=== PATIENT | female | born 1980 | race American Indian/Alaskan Native ===

== ENCOUNTER 2019-02-05 21:38 | Emergency (ER) | payer BC ==
[2019-02-05] MEDS ORDERED: MORPHINE 4 MG/1 ML INJ IV ONE (22:02)
[2019-02-05] MEDS ORDERED: SODIUM CHLORIDE 0.9% 1000 ML 1,000 ML IV ONE (22:02)
[2019-02-05] MEDS ORDERED: ONDANSETRON 4 MG/2 ML INJ IV ONE (22:02)
[2019-02-05] MEDS ORDERED: MORPHINE 4 MG/1 ML INJ ONE (22:05)
[2019-02-05] MEDS ORDERED: SODIUM CHLORIDE 0.9% 1000 ML 1,000 ML ONE (22:06)
[2019-02-05] MEDS ORDERED: ONDANSETRON 4 MG/2 ML INJ ONE (22:06)
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
[2019-02-05] MEDS ORDERED: diphenhydrAMINE 50 MG/ML VIAL ONE (22:13)
[2019-02-05] MEDS ORDERED: diphenhydrAMINE 50 MG/ML VIAL IV ONE (22:18)
[2019-02-05] MEDS ORDERED: methylPREDNISolone Sod Succinate 125 MG/2 ML INJ IV ONE (22:25)
[2019-02-05] MEDS ORDERED: methylPREDNISolone Sod Succinate 125 MG/2 ML INJ ONE (22:29)
[2019-02-05 23:02] LABS: BUN/Creatinine Ratio 16; Blood Urea Nitrogen 14 mg/dL (7-17); Calcium 8.9 mg/dL (8.4-10.2); Hemolysis Index 25
[2019-02-05 23:04] LABS: Alanine Aminotransferase 12 units/L (7-56); Albumin 4.3 g/dL (3.9-5)
[2019-02-05 23:13] LABS: Bilirubin,Direct < 0.2 mg/dL (0-0.2)
[2019-02-05 23:21] LABS: Hematocrit 36.6 % (30.3-42.9); Hemoglobin 11.7 gm/dl (10.1-14.3); Mean Corpuscular HGB Conc 32 % (30-34); Mean Corpuscular Volume 82 fl (79-97); Red Blood Count 4.46 M/mm3 (3.65-5.03); Red Cell Distribution Width 14.6 % (13.2-15.2)
[2019-02-05 23:22] LABS: Platelet Count 97 K/mm3 (140-440)
--- NOTE | 2019-02-06 00:47 | Cat Scan Report ---
CT abdomen pelvis w con INDICATION: Left-sided abdominal pain and mid lower abdominal pain for one and half weeks with nausea. TECHNIQUE: All CT scans at this location are performed using the following dose modulation technique: Automated exposure control. Helical slices were obtained through the abdomen and pelvis. 100 cc of Omnipaque 30 0 is administered. COMPARISON: None available. FINDINGS: Abdomen: There is minimal alveolar atelectasis. The liver, spleen, pancreas, adrenal glands, and kidn eys are unremarkable. There is no obstruction, inflammation, or free air. There is a large amount of stool in the right colon and proximal transverse colon raising possibility of constipation. No adenopathy is seen. The aorta is normal in diameter. Pelvis: There is a 6 cm enhancing mass in the right adnexa there is fluid in the endometrial canal li gabriela related to phase of patient's menstrual cycle. No adenopathy is seen. The appendix is unremarkab le. On review of bone windows no acute osseous abnormalities are seen. IMPRESSION: 1. There is a 6 cm enhancing mass in the right adnexa. This appears to arise from the uterus and I hidalgo spect this represents an exophytic fibroid arising from the uterus. The possibility that this could r epresent an ovarian mass or neoplasm is included in the differential diagnosis but is felt to be less likely. There is a moderate to large amount stool in the right and proximal transverse colon raising the poss ibility of constipation. There is no obstruction, inflammation, or free air. Signer Name: Zachary Blackman MD Signed: 02/06/2019 12:42 AM Workstation Name: [id number]
[2019-02-06] MEDS ORDERED: fentaNYL 100 MCG/2 ML INJ IV ONE (01:35)
[2019-02-06 02:00] LABS: Bacteria,Urine 1+ /HPF (Negative); Bilirubin,Urine NEG (Negative); Blood,Urine SM (Negative); Color,Urine Yellow (Yellow); Mucus,Urine FEW /HPF; Protein,Urine <15 mg/dL mg/dL (Negative); Urobilinogen,Urine < 2.0 mg/dL (<2.0)
[2019-02-06 02:04] LABS: WBC,Urine > 182.0 /HPF (0.0-6.0)
--- NOTE | 2019-02-06 02:34 | Ultrasound Report ---
Pelvic ultrasound complete INDICATION: Pelvic mass on CT performed 02/05/2019 COMPARISON: CT scan dated 02/05/2019 Findings: The uterus measures 10.2 cm in length. Endometrial stripe measures 5 mm. Uterus is anteverted. The right ovary measures 4.1 cm and the left ovary measures 2.3 cm. There is a 2 cm cyst in the right ovary. In the right adnexa adjacent to the right aspect of the uterus there is a 5.3 x 4.4 x 5.9 cm solid ma ss. This is the structure seen on CT. Ultrasound examination this appears to be separate from the jena bipin. On CT there appears to be a connection with the uterus. There is a small amount of free fluid in the pelvis. IMPRESSION: There is a solid mass lesion in the right pelvis adjacent to the uterus this appears to be separate f rom the ovary. Differential diagnosis includes neoplastic etiologies. This may represent a pedunculat ed exophytic fibroid arising from the uterus. Signer Name: Zachary Blackman MD Signed: 02/06/2019 2:29 AM Workstation Name: [id number]
[2019-02-06 04:01] VITALS: BP 130/79
== END 2019-02-06 03:59 | disposition home or self-care (01) ==
LOC: ED 21:38
DX: N39.0 Urinary tract infection, site not specified (principal); J45.909 Unspecified asthma, uncomplicated; G47.30 Sleep apnea, unspecified; Z87.442 Personal history of urinary calculi; Z88.0 Allergy status to penicillin; Z88.8 Allergy status to other drugs, medicaments and biological substances; Z88.6 Allergy status to analgesic agent
CPT/HCPCS: 36415; 74177; 76856; 80048; 80076; 81001; 83690; 84703; 85025; 96361; 96365; 96375; 99285; J1200; J1956; J2270; J2405; J2930; J3010; J7030; Q9967

== ENCOUNTER 2019-04-12 05:50 | Inpatient (IN) | payer BC ==
--- NOTE | 2019-04-10 11:20 | Anesthesia Consultation ---
Anesthesia Consult and Med Hx Date of service: 04/12/19 - Airway Anesthetic Teeth Evaluation: Good ROM Head & Neck: Adequate Mental/Hyoid Distance: Adequate Mallampati Class: Class I Intubation Access Assessment: Good - Pre-Operative Health Status ASA Pre-Surgery Classification: ASA2 Proposed Anesthetic Plan: General Nerve Block: TAP - Pulmonary Hx Asthma: Yes Hx Sleep Apnea: Yes - Cardiovascular System Hx Heart Murmur: Yes (+Cardiac Clearance: ECHO [id number]) - Central Nervous System Hx Seizures: Yes (Had "convulsions" as allergic reaction to meds) Hx Psychiatric Problems: No - Hematic Hx Anemia: Yes - Other Systems Hx Cancer: No
[2019-04-10 11:28] LABS: Basophils % (Auto) 1.2 % (0.0-1.8); Eosinophils # (Auto) 0.1 K/mm3 (0.0-0.4); Eosinophils % (Auto) 2.9 % (0.0-4.3); Hematocrit 35.6 % (30.3-42.9); Hemoglobin 11.5 gm/dl (10.1-14.3); Lymphocytes % (Auto) 37.1 % (13.4-35.0); Mean Corpuscular HGB Conc 32 % (30-34); Mean Corpuscular Volume 82 fl (79-97); Monocytes # (Auto) 0.2 K/mm3 (0.0-0.8); Monocytes % (Auto) 6.5 % (0.0-7.3); Platelet Count 270 K/mm3 (140-440); Red Blood Count 4.35 M/mm3 (3.65-5.03); Red Cell Distribution Width 15.9 % (13.2-15.2)
--- NOTE | 2019-04-11 14:29 | History and Physical Report ---
History of Present Illness Date of examination: 04/11/19 Chief complaint: Pelvic pain, menometrorrhagia, pelvic mass History of present illness: New pt presents for a PLEATER HAND f/u s/p ER visit at [facility]. Pt reports she went to the ER on 02/05/19 d/t lower ABD pain and N/V. States she was told she had a UTI and had an ABD CT scan U/S done d/t hx of kidney stones. Pt was informed of mass on uterus and recommended to f/u with PLEATER HAND. Has hx of left ovarian cyst that was removed in 2003 per pt and was told returned after her last delivery via C/S in 2008; but unsure of which ovary. New cyst caused intermittent ABD pain, heavy menstrual bleeding that lasts 14 days at a time. Pt has been f/u with serial U/S q 6 months to monitor cyst, but her PLEATER HAND practice recently closed in [place]. Pt reports hx of abnormal paps between age [age] and had a colposcopy in 2003. Last pap 07/2018 and reports normal. Has been desiring to have a hysterectomy. Past History : 4 Term Births: 3 Premature Births: 0 Living Children: 3 Para: 3 Mult. Births: 0 Prev : 1 Prev. attempt? 0 # 1 Comments: D&C at 8yrs old # 2 Delivery date: 1999 Delivery type: # 3 Delivery type: # 4 Delivery date: 2008 Delivery type: PLEATER HAND History Uterine Surgery (not C/S): negative Operations: Umbilical hernia repair as an x1 D&C: Cryoablation of cervix - 2003 Ovarian cystectomy 2004 Tubal Ligation Hospitalizations: negative Anesthesia Complications: negative Abnormal PAP: positive Uterine Anomaly: negative YARITZA Exposure: negative Infertility: negative Infection History HIV Risk Eval: no Hep B Immunized: yes TB exposure: no Personal hx. of genital herpes: no Rash/viral illness since LMP: no Hx of STD: chlamydia Active Medications (reviewed today): ALBUTEROL SULFATE (2.5 MG/3ML) 0.083% INHALATION NEBULIZATION SOLUTION (ALBUTEROL SULFATE) IBUPROFEN 800 MG ORAL TABLET (IBUPROFEN) 1 tsb po q 8hr prn pain Current Allergies (reviewed today): HALDOL (Critical) PCN (Critical) MORPHINE (Moderate) Past Medical History: Reviewed history from 03/04/2019 and no changes required: Kidney Stones Sleep apnea - uses CPAP at home Asthma MVP Past Surgical History: Reviewed history from 02/26/2019 and no changes required: Umbilical hernia repair as an infant x1 D&C: Cryoablation of cervix - 2004 Ovarian cystectomy Tubal Ligation Family History Summary: Other family member - Has No Family History of Uterine Cancer - Entered On: 04/11/2019 Other family member - Has No Family History of Spontaneous DVT-PE - Entered On: 04/11/2019 Other family member - Has No Family History of Small Bowel Cancer - Entered On: 04/11/2019 Other family member - Has No Family History of Pancreatic Cancer - Entered On: 04/11/2019 Other family member - Has No Family History of Ovarvian Cancer - Entered On: 04/11/2019 Other family member - Has No Family History of Kidney/Urinary Tract Cancer - Entered On: 04/11/2019 Other family member - Has No Family History of Colon Cancer - Entered On: 04/11/2019 Other family member - Has No Family History of Brain Cancer - Entered On: 04/11/2019 Other family member - Has No Family History of Biliary Tract Cancer - Entered On: 04/11/2019 Cousin (male) - Has Family History of Stomach Cancer - son of the aunt who had lung cancer - Entered On: 04/11/2019 PGM - Has Family History of Lung Cancer - Entered On: 04/11/2019 Aunt - Has Family History of Lung Cancer - paternal, aslo throat - Entered On: 04/11/2019 Aunt - Has Family History Breast Cancer - paternal - Entered On: 04/11/2019 Social History: Reviewed history from 02/07/2019 and no changes required: Patient is single Smoking History: Patient has never smoked. Risk Factors: Smoked Tobacco Use: Never smoker Smokeless Tobacco Use: Never Passive smoke exposure: no Drug use: no HIV high-risk behavior: no Alcohol use: no Exercise: no Seatbelt use: 100 % PAP Smear History: Date of Last PAP Smear: 07/20/2018 Previous Tobacco Use: Signed On 03/04/2019 Smoked Tobacco Use: Never smoker Smokeless Tobacco Use: Never Passive smoke exposure: no Drug use: no HIV high-risk behavior: no Caffeine use: 0 drinks per day Previous Alcohol Use: Signed On 03/04/2019 Alcohol use: no Exercise: no Seatbelt use: 100 % PAP Smear History: Date of Last PAP Smear: 07/20/2018 Physical Exam Appearance: well developed, well nourished, no acute distress Other Exams Lungs: no rales, rhonchi, or wheezes Heart: S1, S2, no murmur, rub, or gallop Genitourinary Exam Uterus: deferred for EUA Impression & Recommendations: Problem # 1: Menorrhagia/Menometrorrhagia (ICD-626.2) (RZH47-M30.0) Diagnosis explained to patient . Discussed with patient various medical, surgical and radiological therapies common for treatment including, but not limited to, myomectomy, hysterectomy and uterine artery embolization. Discussed risks and benefits of laparotomy, laparoscopy, vaginal and robotic assisted approaches for hysterectomies. Patient desires definitive treatment in the form of robot assisted laparoscopic total hysterectomy. The risks and alternatives for this surgery were reviewed with the patient. She was informed of the risks of the surgery including, but not limited to, pain, infection, bleeding possibly heavy enough to require a blood transfusion with associated ri sks of infections (hepatitis and HIV) and transfusion reactions, possible damage to bowel, bladder or ureter(s). Patient understands that this surgery will make her sterile. Indications to abort a robotic/laparoscopic procedure and perform an open procedure were explained. Patient understands if her ovaries are removed she will become menopausal. She desires ovarian conservation. She was informed she may require surgery later to have her ovaries removed for a benign or mailgnant condition. Patient advised the small risks of spreading of malignancy if morcellation is required during the surgery patient understands and approves performing if necessary. Questions answered. Consent reviewed and signed The patient was instructed/informed the following: The normal length of hospital stay for this procedure. Nothing to eat or drink after midnight the evening prior to surgery. Clear liquids the day before surgery. Pre-op instruction sheets given. Wound care instructions given. Problem # 2: Pelvic mass (ICD-789.30) (WIJ76-C20.00) She was informed her ovary may require removal if this mass involves the ovary. Problem # 3: Left lower quadrant pain (EGY36-M28.32) It was extensively explained to her that her pain may persist, recur or change in nature due to the difficulty with diagnosis of chronic pelvic pain or development of adhesions. She declined other treatment options at this time. Questions were encouraged and answered. Medications and Allergies Allergies Allergy/AdvReac Type Severity Reaction Status Date / Time haloperidol [From Haldol] Allergy Seizure Verified 04/01/19 17:01 morphine Allergy Seizure Verified 04/01/19 17:01 Penicillins Allergy Unknown Verified 02/05/19 22:02 Home Medications Medication Instructions Recorded Confirmed Last Taken Type Iron [Iron 18 MG TAB] 18 mg PO QDAY 04/01/19 04/01/19 Unknown History Exam Vital Signs Temp Pulse Resp BP Pulse Ox 96.7 F L 73 18 103/50 100 04/10/19 10:43 04/10/19 10:43 04/10/19 10:43 04/10/19 10:43 04/10/19 10:43 Results - Labs 04/10/19 10:59 Assessment and Plan - Patient Problems (1) Menometrorrhagia Status: Chronic (2) Pelvic pain Status: Chronic (3) Pelvic mass in female Status: Acute (4) Neutropenia Status: Acute
[~2019-04-12 05:50] MED LIST: GENTAMICIN 0 MG in SODIUM CHLORIDE 0.9% 100 ML IV ONE; GENTAMICIN/NS 100 MG/100 ML 100 MG/100 ML BAG IV SCH; ceFAZolin/Water 2 GM/20 ML 2 GM/20 ML SYRINGE IV NR
[2019-04-12] MEDS ORDERED: MIDAZOLAM 2 MG/2 ML INJ ONE (07:16)
[2019-04-12] MEDS ORDERED: ACETAMINOPHEN 325 MG TAB ONE (07:16)
[2019-04-12] MEDS ORDERED: GABAPENTIN 300 MG CAP ONE (07:17)
[2019-04-12] MEDS ORDERED: LACTATED RINGERS 1,000 ML ONE (07:17)
[2019-04-12] MEDS ORDERED: CELECOXIB 200 MG CAP ONE (07:17)
[2019-04-12] MEDS ORDERED: fentaNYL 100 MCG/2 ML INJ ONE (07:18)
[2019-04-12] MEDS ORDERED: LIDOCAINE (1%) 10 MG/1 ML VIAL 20 ML MDV ONE (07:19)
[2019-04-12] MEDS ORDERED: BUPIVACAINE-EPINEPHRINE/PF 0.5%-1:200,000 (30 ML) VIAL INFILTRATI ONE (07:19)
[2019-04-12] MEDS ORDERED: ACETAMINOPHEN 325 MG TAB PO NR (07:20)
[2019-04-12] MEDS ORDERED: LACTATED RINGERS 1,000 ML IV SCH ×2 (07:20→11:00)
[2019-04-12] MEDS ORDERED: MIDAZOLAM 2 MG/2 ML INJ IV NR (07:20)
[2019-04-12] MEDS ORDERED: fentaNYL 100 MCG/2 ML INJ IV NR (07:20)
[2019-04-12] MEDS ORDERED: GABAPENTIN 300 MG CAP PO NR (07:20)
--- NOTE | 2019-04-12 07:21 | Anesthesia Day of Surgery ---
Anesthesia Day of Surgery - Day of Surgery Patient Examined: Yes Patient H&P Reviewed: Yes Patient is NPO: Yes
[2019-04-12] MEDS ORDERED: NEOMY 40 MG/POLYMYXIN B 200,000 UNITS/ML (GU) AMPULE IR ONE ×2 (07:26→08:50)
[2019-04-12] MEDS ORDERED: LIDOCAINE MPF (2%) 20 MG/1 ML VIAL 5 ML ONE (07:33)
[2019-04-12] MEDS ORDERED: ONDANSETRON 4 MG/2 ML INJ ONE ×2 (07:33→07:43)
[2019-04-12] MEDS ORDERED: PROPOFOL 200 MG/20 ML VIAL IV ONE (07:33)
[2019-04-12] MEDS ORDERED: GLYCOPYRROLATE 0.4 MG/2 ML INJ ONE (07:33)
[2019-04-12] MEDS ORDERED: fentaNYL 250 MCG/5 ML INJ ONE (07:33)
[2019-04-12] MEDS ORDERED: ROCURONIUM 50 MG/5 ML INJ IV ONE (07:33)
[2019-04-12] MEDS ORDERED: PHENYLEPHRINE/NS 1,000 MCG/10 ML SYRINGE (OR USE) IV ONE (07:33)
[2019-04-12] MEDS ORDERED: NEOSTIGMINE 10MG/10 ML INJ MDV ONE (07:33)
[2019-04-12] MEDS ORDERED: dexAMETHasone 20 MG/5 ML VIAL ONE (07:33)
[2019-04-12] MEDS ORDERED: ONDANSETRON 4 MG/2 ML INJ IV NR (07:42)
[2019-04-12] MEDS ORDERED: diphenhydrAMINE 50 MG/ML VIAL IV NR (07:46)
[2019-04-12] MEDS ORDERED: diphenhydrAMINE 50 MG/ML VIAL ONE (07:47)
--- NOTE | 2019-04-12 08:06 | Event Note ---
Date: 04/12/19 s/w patient's mother and aunts. No questions voiced
[2019-04-12] MEDS ORDERED: CALCIUM CHLORIDE 1,000 MG/10 ML SYRINGE IV ONE (08:12)
[2019-04-12] MEDS ORDERED: THROMBIN (RECOMBINANT) 5,000 UNIT VIAL TP ONE (08:12)
[2019-04-12] MEDS ORDERED: SODIUM CHLORIDE 0.9% IRRIG SOLN 2000 ML IR ONE (08:51)
--- NOTE | 2019-04-12 10:57 | Post Operative Note ---
Pre-op diagnosis: menorrhagia, pelvic mass Post-op diagnosis: same (fibroids) Procedure: RALTH with (B) salpingectomy Anesthesia: RISHI Surgeon: KAVITA ERWIN Estimated blood loss: minimal Specimen disposition: to lab Condition: stable Disposition: PACU
--- NOTE | 2019-04-12 11:40 | Operative Report ---
Operative Report Operative Report: Date: 04/12/2019 Preoperative diagnosis: 1. Menorrhagia 2. Uterine fibroids 3. Body mass index of 25 kg/m 4. Pelvic mass Postoperative diagnosis: 1. Menorrhagia 2. Uterine fibroids 3. Body mass index of 25 kg/m 4. Pelvic adhesions Procedure: 1. Robotic-assisted laparoscopic total hysterectomy with bilateral salpingectomy 2. Lysis of pelvic adhesions Surgeon: Nora Matta MD Manager Marketing Communication: Shanthi Gaffney Anesthesiologist: Dr. Lynn Anesthesia: General endotracheal anesthesia EBL: Approximately 50 mL Findings: Uterus was sounded to 10 cm. Grossly normal tubes and ovaries. Procedure: Patient was taken to the OR and placed in the supine position. General anesthesia was induced and an oral gastric tube was placed. Her neck and head were placed on foam support. Foam eye protection with goggles were secured in place. Then foam face protection was placed and secured. Foam shoulder pads were then positioned on her shoulders for Trendelenburg positioning. She was then placed in dorsolithotomy position. Exam under anesthesia unremarkable, however difficult to palpate due to body mass index. The abdomen and vagina were then prepped and draped in the usual sterile fashion. Timeout was performed. A Rodriguez catheter was inserted into the bladder with drainage of clear yellow urine. The operative speculum was introduced into the vagina and the anterior lip of the cervix was grasped with single-toothed tenaculum. The uterus was sounded to 8 cm. The cervix was progressively dilated to allow the medium V care uterine manipulator. The bulb of the manipulator was inflated and the speculum and tenaculum were removed. The cup of the manipulator was placed around the cervix and the blue occluder of the manipulator was properly positioned in the vagina. A laparotomy sponge that was saturated with a solution of polymyxin and saline was placed in the vagina to ensure pneumoperitoneum. Sterile gloves were placed and attention was turned to the abdomen. A 10 mm midline vertical supraumbilical incision was made approximately 10 cm superior to the elevated fundus of the uterus. A 12 mm trocar with the laparoscope and camera attached was introduced through this incision under direct visualization. The abdomen was insufflated. No obvious bowel, bladder, ureteral, or major vascular injury was noted. The patient was then placed in steep Trendelenburg position and the following trochars were placed under direct visualization: 8 mm robotic trochars were placed through incisions made in the bilateral midclavicular lower abdominal region approximately 10 cm lateral to the midline incision, and a 5 mm trocar was placed through an incision made in the right lower lateral pelvis. The 10 mm laparoscope was then replaced by a 5 mm laparoscope that was placed through the 5 millimeter lateral trocar. The 12 mm trocar was then removed and the Dennis Acosta fascial closure device was placed through the incision and a 0 Vicryl was placed through the fascia. Once the suture was secured the 12 mm trocar was reintroduced. Once the trochars were in the appropriate positions, the da Paulo robot system was engaged. The EndoShears and bipolar device was placed through the 8 mm trochars and positioned then attention was turned to the console. The uterus was elevated and bilateral salpingectomy was performed. Each tube was removed through the 5 mm trocar and sent to pathology in separate containers. Then the utero-ovarian ligaments were clamped. cauterized and incised bilaterally using 30 W of energy. Then the round ligaments were clamped, cauterized and incised bilaterally. The mass in the right adnexa noted on imaging was visualized to be actually in the lateral right lower uterine segment. The anterior leaf of the broad ligament was elevated and with careful blunt and sharp dissection the bladder flap was created and dissected away from the lower uterine segment and cervix. The posterior leaf of the broad ligament was dissected away from the uterine vessels. An incision was made over the anterior serosa of the fibroid. The decision was made to remove the fibroid in order to restore anatomy. With careful blunt and sharp dissection the fibroid was removed. The cup of the uterine manipulator was palpated both anteriorly and posteriorly. The bladder was further dissected away from the lower uterine segment. The uterine vessels were then clamped and cauterized bilaterally. Blanching of the uterus was then noted. Attention was again turned to the anterior lower uterine segment and the bladder was confirmed to be away from the operative field. Then attention was turned again to the posterior where the cup of the manipulator was palpated and a colpotomy was performed down to the cup. The incision was extended in the lateral position to the uterine vessels that were again clamped and cauterized and incised. Continuing along the cup of the manipulator in a circumferential manner the colpotomy was completed. The uterus and cervix were then removed through the vaginal incision. The fibroid was also removed through the vagina. The pelvis was irrigated with warm normal saline. A moist laparotomy sponge was placed in the vagina to maintain pneumoperitoneum. The vagina cuff was reapproximated using V LOC 180 suture. Then a J stitch was performed to secure the suture. Again the pelvis was copiously irrigated with polymixin in warm normal saline. The laparotomy sponge was removed from the vagina. No obvious evidence of bowel, bladder, ureteral, or major vascular injury was noted. Once hemostasis was noted, platelet rich plasma was applied to the operative field to ensure hemostasis. Then lately poor plasma was applied to the operative field to decrease formation of adhesions. Again hemostasis was noted. Then the instruments were removed, the robot was disengaged. The 12 mm trocar was removed and the fascia was ligated with the 0 Vicryl suture that was placed at the beginning of the procedure. The patient was taken out of Trendelenburg position, the abdomen was desufflated, the remaining trochars were removed. Incisions were reapproximated using 4-0 Monocryl in a subcuticular manner. . Surgiseal was placed over the other incisions. The vagina was then inspected, the cuff was palpated to be intact and no bleeding was noted and clear yellow urine was draining into the Rodriguez bag from the bladder at the end of the procedure. Counts were correct 3.Patient was taken to recovery room in stable condition.
[2019-04-12] MEDS ORDERED: ACETAMINOPHEN 325 MG TAB PO PRN (12:00)
[2019-04-12] MEDS ORDERED: ALBUTEROL 2.5 MG/3 ML NEBU IH ONE ×2 (12:03→14:31)
[2019-04-12] MEDS ORDERED: DEXMEDETOMIDINE 200 MCG/2 ML VIAL IV ONE (12:14)
[2019-04-12] MEDS ORDERED: SODIUM CHLORIDE 0.9% 250ML 250 ML ONE (12:15)
[2019-04-12] MEDS ORDERED: SODIUM CHLORIDE 0.9% 0 ML ONE (12:17)
[2019-04-12] MEDS: MIDAZOLAM 2 MG/2 ML INJ IV PRN ×2 (12:18→13:10)
[2019-04-12] MEDS ORDERED: METOCLOPRAMIDE 10 MG TAB PO PRN (12:30)
[2019-04-12] MEDS ORDERED: ONDANSETRON 4 MG ODT TAB PO PRN (12:30)
[2019-04-12] MEDS ORDERED: METOCLOPRAMIDE 10 MG/2 ML INJ IV PRN (12:30)
[2019-04-12] MEDS: oxyCODONE /ACETAMINOPHEN 5-325MG TAB PO PRN (14:59)
[2019-04-12] MEDS ORDERED: IPRATROPIUM/ALBUTEROL SULFATE 3 ML AMPUL.NEB IH PRN (16:23)
[2019-04-12] MEDS ORDERED: ALBUTEROL 2.5 MG/3 ML NEBU IH PRN (16:23)
--- NOTE | 2019-04-12 16:48 | Post Anesthesia Evaluation ---
- Post Anesthesia Evaluation Patient Participated: Yes Airway Patent: Yes Stable Respiratory Function: Yes Nausea/Vomiting: No Temp > 96.8F: Yes Pain Manageable: Yes Adequeate Hydration: Yes Anesthesia Complications: No Block Receding Appropriately: Not Applicable Patient on Ventilator: No
--- NOTE | 2019-04-12 16:58 | Consultation ---
History of Present Illness - Reason for Consult Consult date: 04/12/19 Medical Management Requesting physician: KAVITA ERWIN - History of Present Illness 38 y/o admitted after complete Hysterectomy.Patient has history of Menorrhagia,Asthma and Sleep Apnea.Some anxiety present.Some sob present.No fever or chills. Past Medical History: Reviewed history from 03/04/2019 and no changes required: Kidney Stones Sleep apnea - uses CPAP at home Asthma [facility] Past Surgical History: Reviewed history from 02/26/2019 and no changes required: Umbilical hernia repair as an x1 D&C: Cryoablation of cervix - 2003 Ovarian cystectomy Tubal Ligation [employer] History Uterine Surgery (not C/S): negative Operations: Umbilical hernia repair as an infant x1 D&C: Cryoablation of cervix - 2003 Ovarian cystectomy 2004 Tubal Ligation Hospitalizations: negative Anesthesia Complications: negative Abnormal PAP: positive Uterine Anomaly: negative YARITZA Exposure: negative Infertility: negative Infection History HIV Risk Eval: no Hep B Immunized: yes TB exposure: no Personal hx. of genital herpes: no Rash/viral illness since LMP: no Hx of STD: chlamydia Active Medications (reviewed today): ALBUTEROL SULFATE (2.5 MG/3ML) 0.083% INHALATION NEBULIZATION SOLUTION (A LBUTEROL SULFATE) IBUPROFEN 800 MG ORAL TABLET (IBUPROFEN) 1 tsb po q 8hr prn pain Current Allergies (reviewed today): HALDOL (Critical) PCN (Critical) MORPHINE (Moderate) Medications and Allergies Allergies Allergy/AdvReac Type Severity Reaction Status Date / Time haloperidol [From Haldol] Allergy Seizure Verified 04/01/19 17:01 morphine Allergy Seizure Verified 04/01/19 17:01 Penicillins Allergy Unknown Verified 02/05/19 22:02 Home Medications Medication Instructions Recorded Confirmed Last Taken Type Iron [Iron 18 MG TAB] 18 mg PO QDAY 04/01/19 04/01/19 Unknown History Ibuprofen 800 PO DAILY 04/12/19 Unknown History Ibuprofen [Motrin 800 MG tab] 800 mg PO TID PRN #30 tablet 04/12/19 Unknown Rx Symbicort 160-4.5 Mcg Inhaler 04/12/19 Unknown History oxyCODONE /ACETAMINOPHEN [Percocet 1 - 2 tab PO Q6H PRN #14 tablet 04/12/19 Unknown Rx 5/325 mg] Active Meds: Active Medications Acetaminophen (Tylenol) 650 mg PO Q6H PRN PRN Reason: Pain, Mild (1-3) Famotidine (Pepcid) 20 mg IV BID KETAN Fentanyl (Sublimaze) 100 mcg IV ONCE NR Stop: 04/12/19 18:00 Last Admin: 04/12/19 07:26 Dose: 100 mcg Documented by: Gabapentin (Gabapentin) 300 mg PO BID KETAN Gentamicin Sulfate/Sodium Chloride (Gentamicin/Ns 100 Mg/100 Ml) 100 mg in 100 mls @ 200 mls/hr IV PREOP KETAN Stop: 04/12/19 23:59 Gentamicin Sulfate/Sodium Chloride (Gentamicin/Ns 80 Mg/100 Ml) 100 mls @ 200 mls/hr IV Q8H KETAN; Protocol Stop: 04/13/19 00:59 Clindamycin HCl (Cleocin 600 Mg/50 Ml) 600 mg in 50 mls @ 100 mls/hr IV Q8H KETAN; Protocol Stop: 04/13/19 00:59 Lactated Ringer's (Lactated Ringers) 1,000 mls @ 125 mls/hr IV DIRECT KETAN Metoclopramide HCl (Reglan) 10 mg IV Q6H PRN PRN Reason: Nausea And Vomiting Metoclopramide HCl (Reglan) 10 mg PO Q6H PRN PRN Reason: Nausea And Vomiting Midazolam HCl (Versed) 2 mg IV PREOP NR Stop: 04/12/19 23:59 Last Admin: 04/12/19 07:26 Dose: 2 mg Documented by: Midazolam HCl (Versed) 1 mg IV ONCE PRN PRN Reason: Agitation Last Admin: 04/12/19 13:10 Dose: 1 mg Documented by: Ondansetron HCl (Zofran) 4 mg IV PREOP NR Stop: 04/12/19 18:00 Last Admin: 04/12/19 07:44 Dose: 4 mg Documented by: Ondansetron HCl (Zofran) 4 mg IV Q8H PRN PRN Reason: N/V unrelieved by Reglan Ondansetron HCl (Zofran Odt) 4 mg PO Q8H PRN PRN Reason: Nausea And Vomiting Oxycodone/Acetaminophen (Percocet 5/325) 2 tab PO Q6H PRN PRN Reason: Pain, Moderate (4-6) Last Admin: 04/12/19 14:59 Dose: 2 tab Documented by: Review of Systems All systems: negative Constitutional: no weight loss, no weight gain, no fever, no chills Ears, nose, mouth and throat: no ear pain, no ear discharge, no tinnitis, no decreased hearing Breasts: deferred Cardiovascular: no chest pain, no orthopnea, no palpitations, no rapid/irregular heart beat, no edema, no syncope, no lightheadedness, no shortness of breath, no dyspnea on exertion Respiratory: no dyspnea on exertion, no congestion Gastrointestinal: no change in bowel habits, no hematemesis, no coffee ground emesis, no BRBPR Menstruation: post hysterectomy Rectal: no pain, no incontinence, no bleeding Musculoskeletal: no neck stiffness, no neck pain, no shooting arm pain, no arm numbness/tingling Integumentary: no rash, no pruritis, no redness, no sores, no wounds Neurological: no head injury, no transient paralysis, no paralysis, no weakness Psychiatric: anxiety Endocrine: no cold intolerance, no heat intolerance, no polyphagia, no excessive thirst, no polydipsia Hematologic/Lymphatic: no easy bruising, no easy bleeding Allergic/Immunologic: no urticaria, no allergic rhinitis, no wheezing Exam - Constitutional Vitals: Temp Pulse Resp BP Pulse Ox 97.6 F 89 16 121/62 99 04/12/19 13:00 04/12/19 13:45 04/12/19 13:45 04/12/19 13:45 04/12/19 13:45 General appearance: Present: no acute distress, well-nourished - EENT Eyes: Present: PERRL ENT: hearing intact, clear oral mucosa - Neck Neck: Present: supple, normal ROM - Respiratory Respiratory effort: normal Respiratory: bilateral: CTA, rhonchi, wheezing - Cardiovascular Rhythm: regular Heart Sounds: Present: S1 & S2. Absent: rub, click - Extremities Extremities: pulses symmetrical, No edema Peripheral Pulses: within normal limits - Abdominal General gastrointestinal: Present: soft, non-tender, non-distended, normal bowel sounds Female genitourinary: Present: normal - Integumentary Integumentary: Present: clear, warm, dry - Musculoskeletal Musculoskeletal: gait normal, strength equal bilaterally - Psychiatric Psychiatric: appropriate mood/affect, intact judgment & insight - Neurologic Neurologic: CNII-XII intact, moves all extremities - Allied Health Allied health notes reviewed: nursing, case management Results - Labs CBC & Chem 7: 04/10/19 10:59 Assessment and Plan Critical care time 30 minutes - Patient Problems (1) Menometrorrhagia Current Visit: No Status: Resolved Plan to address problem: Had complete hysterectomy today (2) Asthma Current Visit: Yes Status: Chronic Qualifiers: Asthma severity: mild Plan to address problem: Albuterol and DuoNeb's when necessary (3) Neutropenia Current Visit: No Status: Chronic Qualifiers: Neutropenia type: unspecified Qualified Code(s): D70.9 - Neutropenia, unspecified Plan to address problem: Cyclic L1 102 (4) Sleep apnea Current Visit: Yes Status: Chronic Qualifiers: Sleep apnea type: unspecified type Qualified Code(s): G47.30 - Sleep apnea, unspecified Plan to address problem: On CPAP at nighttime (5) VENKATA (generalized anxiety disorder) Current Visit: Yes Status: Acute Plan to address problem: IV Ativan when necessary (6) Pain management Current Visit: Yes Status: Acute Plan to address problem: IV Dilaudid 0.5-1 mg every 3 when necessary Patient is allergic to morphine (7) DVT prophylaxis Current Visit: Yes Status: Acute Plan to address problem: On SCDs and GI prophylaxis
[2019-04-12] MEDS ORDERED: HYDROmorphone 1 MG/1 ML INJ IM PRN (17:55)
--- NOTE | 2019-04-12 20:34 | Progress Note ---
Assessment and Plan - Patient Problems (1) History of robot-assisted laparoscopic hysterectomy Current Visit: Yes Status: Acute Plan to address problem: w/ (B) salpingectomy Patient placed in IMCU d/t intermittent desaturation in PACU. Doing well now. Patient's mother in room. Patient now alert and appropriately responsive. Operative findings and procedure explained. Will probably allow home tomorrow about noon. Patient states Ibuprofen 800mg usually controls her pain, states Percocet didn't help however her mother states she slept well after taking the Percocet. Pain expectations and management plan discussed. Will start Ibuprofen now q6hour scheduled. NSAID and narcotic usages precautions given. Questions were encouraged and answered, they both voiced understanding and agree with POC. (2) Menometrorrhagia Current Visit: No Status: Resolved (3) Pelvic pain Current Visit: No Status: Chronic (4) Pelvic mass in female Current Visit: No Status: Resolved (5) Neutropenia Current Visit: No Status: Acute Subjective Date of service: 04/12/19 Patient Reports: Positive: feels better, pain is less, tolerating liquids well, afebrile. Negative: vomiting, shortness of breath Objective Vital Signs - 12hr 04/12/19 04/12/19 04/12/19 11:00 11:05 11:10 Temperature 97.6 F Pulse Rate 89 95 H 87 Respiratory 8 L 10 L 10 L Rate Blood Pressure 121/71 115/54 113/66 O2 Sat by Pulse 88 90 100 Oximetry 04/12/19 04/12/19 04/12/19 11:15 11:20 11:30 Temperature Pulse Rate 91 H 89 97 H Respiratory 12 9 L 11 L Rate Blood Pressure 116/57 120/51 133/73 O2 Sat by Pulse 100 100 100 Oximetry 04/12/19 04/12/19 04/12/19 11:45 12:00 12:15 Temperature Pulse Rate 97 H 103 H 115 H Respiratory 9 L 16 22 Rate Blood Pressure 134/76 128/87 110/63 O2 Sat by Pulse 100 92 94 Oximetry 04/12/19 04/12/19 04/12/19 12:30 12:45 13:00 Temperature 97.6 F Pulse Rate 94 H 100 H 104 H Respiratory 12 12 22 Rate Blood Pressure 126/61 126/71 136/68 O2 Sat by Pulse 100 100 100 Oximetry 04/12/19 04/12/19 13:30 13:45 Temperature Pulse Rate 94 H 89 Respiratory 18 16 Rate Blood Pressure 100/69 121/62 O2 Sat by Pulse 99 99 Oximetry - General physical appearance well developed, well nourished, no distress - Respiratory normal expansion, normal respiratory effort, clear to auscultation - Abdomen soft, bowel sounds normal, wound (c/d/i) - Integumentary no rash, no growths - Psychiatric oriented to time, oriented to person, oriented to place, speech is normal, memory intact - Labs 04/10/19 10:59
[2019-04-12] MEDS: CLINDAMYCIN 600 MG/50 mL 600 MG/50 ML BAG IV SCH (21:33)
[2019-04-12] MEDS: IBUPROFEN 800 MG TAB PO SCH (21:33)
[2019-04-12] MEDS ORDERED: FAMOTIDINE 20 MG/2 ML INJ IV SCH (22:00)
[2019-04-12] MEDS ORDERED: GABAPENTIN 300 MG CAP PO SCH (22:00)
[2019-04-12] MEDS ORDERED: NON-FORMULARY EACH (Symbicort 160-4.5 Mcg Inhaler 2 PUFF) IH SCH (22:00)
[2019-04-12] MEDS: PANTOPRAZOLE 40 MG TAB PO SCH (22:20)
[2019-04-13] MEDS: ONDANSETRON 4 MG/2 ML INJ IV PRN ×2 (01:32→18:45)
[2019-04-13] MEDS: oxyCODONE /ACETAMINOPHEN 5-325MG TAB PO PRN ×2 (01:52→21:40)
[2019-04-13] MEDS: LORazepam 2 MG/ML VIAL IV PRN ×2 (01:52→21:04)
[2019-04-13] MEDS: IBUPROFEN 800 MG TAB PO SCH ×3 (02:23→15:32)
[2019-04-13] MEDS: CLINDAMYCIN 600 MG/50 mL 600 MG/50 ML BAG IV SCH (03:19)
[2019-04-13] MEDS: GENTAMICIN/NS 80 MG/100 ML 100 ML IV SCH ×2 (03:20→06:58)
[2019-04-13 05:52] LABS: Hematocrit 30.7 % (30.3-42.9); Hemoglobin 9.8 gm/dl (10.1-14.3); Mean Corpuscular HGB Conc 32 % (30-34); Mean Corpuscular Volume 82 fl (79-97); Platelet Count 266 K/mm3 (140-440); Red Blood Count 3.73 M/mm3 (3.65-5.03); Red Cell Distribution Width 15.6 % (13.2-15.2)
[2019-04-13] MEDS: HYDROmorphone 1 MG/1 ML INJ IV PRN ×2 (06:52→17:15)
[2019-04-13] MEDS: ARFORMOTEROL 15 MCG/2 ML NEBU IH SCH ×2 (08:08→20:38)
[2019-04-13] MEDS: BUDESONIDE 0.5 MG/2 ML NEBU IH SCH ×2 (08:09→20:38)
--- NOTE | 2019-04-13 10:48 | Consultation ---
History of Present Illness Consult date: 04/13/19 Requesting physician: HERO GONZALEZ Reason for consult: hypoxemia History of present illness: 38 y/o female with LANDEN, wears CPAP at home but did not bring, admitted to the step down unit post op secondary to hypoxemia in PACU. Patient is now currently on room air and sats are 100. Mother at bedside. Mild pain but very lethargic. Does not have home CPAP with her. Past History Past Medical History: other (LANDEN) Medications and Allergies Allergies Allergy/AdvReac Type Severity Reaction Status Date / Time haloperidol [From Haldol] Allergy Seizure Verified 04/01/19 17:01 morphine Allergy Seizure Verified 04/01/19 17:01 Penicillins Allergy Unknown Verified 02/05/19 22:02 Home Medications Medication Instructions Recorded Confirmed Last Taken Type Iron [Iron 18 MG TAB] 18 mg PO QDAY 04/01/19 04/01/19 Unknown History Ibuprofen 800 PO DAILY 04/12/19 Unknown History Ibuprofen [Motrin 800 MG tab] 800 mg PO TID PRN #30 tablet 04/12/19 Unknown Rx Symbicort 160-4.5 Mcg Inhaler 04/12/19 Unknown History oxyCODONE /ACETAMINOPHEN [Percocet 1 tab PO Q6H PRN #14 tablet 04/12/19 Unknown Rx 5/325 mg] Active Meds: Active Medications Acetaminophen (Tylenol) 650 mg PO Q6H PRN PRN Reason: Pain, Mild (1-3) Albuterol (Proventil) 2.5 mg IH Q4HRT PRN PRN Reason: Shortness Of Breath Albuterol/Ipratropium (Duoneb *Not For Prn Use*) 1 ampul IH Q3H PRN PRN Reason: Wheezing Arformoterol Tartrate (Brovana Nebu) 15 mcg IH Q12HRT KETAN Budesonide (Pulmicort) 1 mg IH Q12HRT KETAN Hydromorphone HCl (Dilaudid) 1 mg IV Q3H PRN PRN Reason: Pain , Severe (7-10) Last Admin: 04/13/19 06:52 Dose: 1 mg Documented by: Lactated Ringer's (Lactated Ringers) 1,000 mls @ 125 mls/hr IV DIRECT KETAN Ibuprofen (Ibuprofen) 800 mg PO Q6H KETAN Stop: 04/13/19 15:01 Last Admin: 04/13/19 02:23 Dose: 800 mg Documented by: Lorazepam (Ativan) 1 mg IV Q4H PRN PRN Reason: Anxiety Last Admin: 04/13/19 01:52 Dose: 1 mg Documented by: Metoclopramide HCl (Reglan) 10 mg IV Q6H PRN PRN Reason: Nausea And Vomiting Last Admin: 04/13/19 08:06 Dose: 10 mg Documented by: Metoclopramide HCl (Reglan) 10 mg PO Q6H PRN PRN Reason: Nausea And Vomiting Midazolam HCl (Versed) 1 mg IV ONCE PRN PRN Reason: Agitation Last Admin: 04/12/19 13:10 Dose: 1 mg Documented by: Ondansetron HCl (Zofran) 4 mg IV Q8H PRN PRN Reason: N/V unrelieved by Reglan Last Admin: 04/13/19 01:32 Dose: 4 mg Documented by: Ondansetron HCl (Zofran Odt) 4 mg PO Q8H PRN PRN Reason: Nausea And Vomiting Oxycodone/Acetaminophen (Percocet 5/325) 2 tab PO Q6H PRN PRN Reason: Pain, Moderate (4-6) Last Admin: 04/13/19 01:52 Dose: 2 tab Documented by: Pantoprazole Sodium (Protonix) 40 mg PO QDAY KETAN Last Admin: 04/12/19 22:20 Dose: Not Given Documented by: Review of Systems All systems: negative Physical Examination Vital signs: Vital Signs Temp Pulse Resp BP Pulse Ox 96.7 F L 73 18 103/50 100 04/10/19 10:43 04/10/19 10:43 04/10/19 10:43 04/10/19 10:43 04/10/19 10:43 General appearance: no acute distress, lethargic Eyes: non-icteric Neck: supple Effort: normal Ascultation: Bilateral: clear Percussion: Bilateral: not dull Tactile fremitus: Bilateral: normal Cardiovascular: regular rate and rhythm Results - Laboratory Findings CBC and BMP: 04/13/19 05:20 Abnormal lab findings: Abnormal Labs 04/10/19 04/13/19 10:59 05:20 WBC 2.6 L Hgb 9.8 L MCH 26 L 26 L RDW 15.9 H 15.6 H Lymph % (Auto) 37.1 H Lymph # 1.0 L Seg Neutrophils # 1.3 L - Diagnostic Findings Chest x-ray: other (pending, not done yet) Assessment and Plan 38 y/o female with LANDEN, with hypoxemia post op, now resolved. 1. Likely from anesthesia on yesterday 2. If not discharged today, should get CPAP from home or we can prescribe therapy here. 3. Lung exam is clear 4. Await [employer]OL SPECIALIST eval 5. Pulm davidson, no objection to discharge.
[2019-04-13] MEDS: PANTOPRAZOLE 40 MG TAB PO SCH (11:20)
--- NOTE | 2019-04-13 11:21 | XRay Report ---
CHEST 1 VIEW 04/13/2019 11:00 AM INDICATION / CLINICAL INFORMATION: Hypoxemia. COMPARISON: None available. FINDINGS: SUPPORT DEVICES: None. HEART / MEDIASTINUM: No significant abnormality. LUNGS / PLEURA: No significant pulmonary or pleural abnormality. No pneumothorax. ADDITIONAL FINDINGS: No significant additional findings. IMPRESSION: 1. No acute abnormality of the chest. Signer Name: Pawan Marques MD Signed: 04/13/2019 11:17 AM Workstation Name: [id number]
--- NOTE | 2019-04-13 12:54 | Progress Note ---
Assessment and Plan - Patient Problems (1) VENKATA (generalized anxiety disorder) Current Visit: Yes Status: Acute Plan to address problem: stable at this time (2) History of robot-assisted laparoscopic hysterectomy Current Visit: Yes Status: Acute Plan to address problem: -d/c home after pt has spontaneous void -encouraged ambulation -will await call from RN regarding pt voiding. If still unable to void will obtain straight cath to see if she is having fluid retention or not voiding due to low po fluid intake as she is currently not on IV hydration. Subjective - Subjective Date of service: 04/13/19 Principal diagnosis: POD #1 s/p LAVH with BS Interval history: Pt sleeping when provider entered the room. Does not appear to be in pain. Was easily awakened. She states she has not gotten up much due to abdominal muscles feeling sore. She was encouraged to ambulate. She had not spontaneously voided but was getting up to bedside commode as provider was leaving the room. She has tolerated a regular diet and pain is controlled. I d/w pt and her mother(via phone) plan for d/c to home today pending pt being able to spontaneously void. Both expressed understanding. Patient reports: appetite normal, pain well controlled, ambulating normally, no dizzy ambulation Objective - Vital Signs Latest vital signs: Vital Signs Temp Pulse Pulse Resp BP Pulse Ox 04/13/19 11:01 90 22 108/58 100 04/13/19 10:45 100 04/13/19 10:10 85 11 L 108/58 04/13/19 09:01 64 13 108/58 100 04/13/19 08:16 100 04/13/19 08:00 98.0 F 75 22 108/58 100 04/13/19 07:01 74 15 102/58 97 04/13/19 06:00 70 10 L 102/58 100 04/13/19 05:41 61 13 114/85 100 04/13/19 05:31 66 10 L 114/85 100 04/13/19 05:21 78 13 114/85 98 04/13/19 05:11 66 8 L 114/85 99 04/13/19 05:01 65 9 L 114/85 99 04/13/19 04:51 68 10 L 114/85 99 04/13/19 04:41 69 12 114/85 100 04/13/19 04:31 74 14 114/85 99 04/13/19 04:21 66 15 114/85 99 04/13/19 04:11 78 16 114/85 100 04/13/19 04:01 78 17 114/85 92 04/13/19 03:50 75 15 105/51 100 04/13/19 03:40 81 15 105/51 100 04/13/19 03:30 79 17 105/51 100 04/13/19 03:20 81 13 105/51 100 04/13/19 03:10 85 11 L 105/51 98 04/13/19 03:00 98.2 F 67 12 105/51 99 04/13/19 02:50 75 16 105/51 99 04/13/19 02:40 72 18 105/51 100 04/13/19 02:30 75 20 105/51 99 04/13/19 02:20 63 12 105/51 100 04/13/19 02:10 64 15 109/57 100 04/13/19 02:00 75 13 109/56 99 04/13/19 01:50 54 L 13 109/56 100 04/13/19 01:40 56 L 17 103/54 100 04/13/19 01:30 50 L 11 L 109/57 100 04/13/19 01:20 51 L 8 L 103/54 100 04/13/19 01:10 61 11 L 95/51 97 04/13/19 01:00 73 21 104/45 97 04/13/19 00:50 61 18 95/51 99 04/13/19 00:40 63 14 98/48 98 04/13/19 00:30 61 18 100/49 98 04/13/19 00:20 63 17 98/48 99 04/13/19 00:12 91 H 22 99 04/13/19 00:10 62 11 L 105/52 99 04/13/19 00:00 58 L 17 103/50 99 04/12/19 23:54 61 16 105/52 99 04/12/19 23:50 62 15 105/52 99 04/12/19 23:49 98.1 F 04/12/19 23:40 63 8 L 113/56 99 04/12/19 23:31 60 14 113/56 99 04/12/19 23:30 61 13 113/56 98 04/12/19 23:20 67 14 107/62 100 04/12/19 23:15 67 13 100 04/12/19 23:10 65 14 106/59 100 04/12/19 23:00 69 11 L 106/59 100 04/12/19 22:50 78 14 112/59 100 04/12/19 22:40 75 13 106/59 100 04/12/19 22:30 72 21 106/59 100 04/12/19 22:20 59 L 15 107/59 100 04/12/19 22:10 63 12 109/48 100 04/12/19 22:00 64 12 117/46 100 04/12/19 21:50 63 17 111/46 100 04/12/19 21:40 70 11 L 117/46 100 04/12/19 21:33 14 04/12/19 21:30 68 10 L 116/74 100 04/12/19 21:20 81 13 116/74 96 04/12/19 21:11 98.1 F 04/12/19 21:10 68 9 L 110/59 100 04/12/19 21:00 69 18 110/59 100 04/12/19 20:50 77 11 L 117/50 100 04/12/19 20:40 74 11 L 114/29 100 04/12/19 20:30 76 13 127/61 100 04/12/19 20:20 74 15 127/61 100 04/12/19 20:10 82 12 120/66 100 04/12/19 20:00 81 14 119/68 100 04/12/19 19:50 79 17 119/68 100 04/12/19 19:40 88 13 116/64 100 04/12/19 19:30 87 16 140/31 100 04/12/19 19:20 78 11 L 140/31 100 04/12/19 19:10 88 18 123/67 100 04/12/19 19:00 90 13 103/50 99 04/12/19 18:50 62 10 L 102/47 100 04/12/19 18:40 61 11 L 100 04/12/19 18:30 62 10 L 106/50 100 04/12/19 18:21 62 9 L 106/50 100 04/12/19 18:11 66 9 L 112/50 100 04/12/19 18:00 64 10 L 112/50 100 04/12/19 17:51 66 11 L 105/48 100 04/12/19 17:41 67 8 L 136/49 100 04/12/19 17:30 61 13 136/49 100 04/12/19 17:21 60 12 123/57 100 04/12/19 17:11 77 14 120/54 100 04/12/19 17:00 70 18 120/54 100 04/12/19 16:51 68 12 108/65 100 04/12/19 16:41 73 12 117/56 100 04/12/19 16:30 72 12 117/56 100 04/12/19 16:21 72 10 L 111/60 100 04/12/19 16:11 74 17 117/49 100 04/12/19 16:00 76 12 117/49 100 04/12/19 15:51 73 11 L 118/52 100 04/12/19 15:41 80 14 115/53 100 04/12/19 15:30 73 13 115/53 100 04/12/19 15:21 80 19 121/57 100 04/12/19 15:11 82 14 122/51 100 04/12/19 15:00 79 11 L 122/51 100 04/12/19 14:51 79 11 L 120/55 100 04/12/19 14:41 80 11 L 100 04/12/19 14:30 85 17 127/63 100 04/12/19 14:20 92 H 13 127/63 99 04/12/19 14:10 91 H 14 127/63 100 04/12/19 14:00 91 H 16 125/59 04/12/19 13:58 125/59 04/12/19 13:45 89 16 121/62 99 04/12/19 13:30 94 H 18 100/69 99 04/12/19 13:00 97.6 F 104 H 22 136/68 100 Intake and Output 04/12/19 04/13/19 04/13/19 22:59 06:59 14:59 Intake Total 50 100 Output Total 1350 Balance 50 -1350 100 Intake: IV 50 CLEOCIN 600 MG/50 mL 600 50 mg In 50 ml @ 100 mls/hr IV Q8H [facility] Rx#:[id number] Oral 100 Output: Urine 1350 Indwelling Catheter 1350 Other: Total, Intake Amount 100 Total, Output Amount 1350 Voiding Method Indwelling Catheter Bedpan # Bowel Movements 0 Weight 65.77 kg - Exam Breasts: Present: deferred Cardiovascular: Present: Normal S1, Normal S2 Lungs: Present: Clear to auscultation, Normal air movement Abdomen: Present: normal appearance, soft, normal bowel sounds. Absent: distention, tenderness, guarding Uterus: Present: other (absent) Extremities: Present: normal. Absent: tenderness, edema Deep Tendon Reflex Grade: Normal +2 Incision: Present: normal, dry, intact (no s/sx of infection) - Labs Labs: Abnormal lab results 04/13/19 Range/Units 05:20 Hgb 9.8 L (10.1-14.3) gm/dl MCH 26 L (28-32) pg RDW 15.6 H (13.2-15.2) %
--- NOTE | 2019-04-13 14:35 | Progress Note ---
Assessment and Plan Assessment and plan: Neutropenia -Level improved -We'll d/c neutropenic precautions LANDEN -Continue CPAP at night VENKATA -Continue PRN Ativan Asthma -No acute exacerbation -Continue PRN neb tx Acute blood loss anemia, post opt -Will monitor H&H and transfuse for hb<7 Acute respiratory failure with hypoxia, post opt -resolved -pt saturating well on room air Status post total hysterectomy with bilateral salpingectomy -Management by the gynecology team DVT prophylaxis: Lovenox Disposition: Discharge per the primary team History Interval history: Patient reports nausea without vomiting today. She also complained of lower abdominal pain. Hospitalist Physical - Constitutional Vitals: Temp Pulse Resp BP Pulse Ox 98.0 F 90 22 108/58 100 04/13/19 08:00 04/13/19 11:01 04/13/19 11:01 04/13/19 11:01 04/13/19 11:01 General appearance: Present: no acute distress, well-nourished - EENT Eyes: Present: PERRL, EOM intact ENT: hearing intact, clear oral mucosa - Neck Neck: Present: supple - Respiratory Respiratory effort: normal Respiratory: bilateral: CTA - Cardiovascular Rhythm: regular Heart Sounds: Present: S1 & S2 - Extremities Extremities: No edema - Abdominal General gastrointestinal: soft, tender (lower abd), normal bowel sounds - Integumentary Integumentary: Present: warm, dry - Psychiatric Psychiatric: appropriate mood/affect - Neurologic Neurologic: CNII-XII intact Results - Labs CBC & Chem 7: 04/13/19 05:20 Labs: Laboratory Last Values WBC 6.4 K/mm3 (4.5-11.0) 04/13/19 05:20 RBC 3.73 M/mm3 (3.65-5.03) 04/13/19 05:20 Hgb 9.8 gm/dl (10.1-14.3) L 04/13/19 05:20 Hct 30.7 % (30.3-42.9) 04/13/19 05:20 MCV 82 fl (79-97) 04/13/19 05:20 MCH 26 pg (28-32) L 04/13/19 05:20 MCHC 32 % (30-34) 04/13/19 05:20 RDW 15.6 % (13.2-15.2) H 04/13/19 05:20 Plt Count 266 K/mm3 (140-440) 04/13/19 05:20 Lymph % (Auto) 37.1 % (13.4-35.0) H 04/10/19 10:59 [place] % (Auto) 6.5 % (0.0-7.3) 04/10/19 10:59 Eos % (Auto) 2.9 % (0.0-4.3) 04/10/19 10:59 Baso % (Auto) 1.2 % (0.0-1.8) 04/10/19 10:59 Lymph # 1.0 K/mm3 (1.2-5.4) L 04/10/19 10:59 [place] # 0.2 K/mm3 (0.0-0.8) 04/10/19 10:59 Eos # 0.1 K/mm3 (0.0-0.4) 04/10/19 10:59 Baso # 0.0 K/mm3 (0.0-0.1) 04/10/19 10:59 Seg Neutrophils % 52.3 % (40.0-70.0) 04/10/19 10:59 Seg Neutrophils # 1.3 K/mm3 (1.8-7.7) L 04/10/19 10:59 Blood Type O NEGATIVE 04/12/19 06:45 Antibody Screen Negative 04/12/19 06:45 Active Medications - Current Medications Current Medications: Generic Name Dose Route Start Last Admin Trade Name Freq PRN Reason Stop Dose Admin Acetaminophen 650 mg 04/12/19 12:00 Tylenol PO Q6H PRN Pain, Mild (1-3) Albuterol 2.5 mg 04/12/19 16:23 Proventil IH Q4HRT PRN Shortness Of Breath Albuterol/Ipratropium 1 ampul 04/12/19 16:23 Duoneb *Not For Prn Use* IH Q3H PRN Wheezing Arformoterol Tartrate 15 mcg 04/12/19 22:00 Brovana Nebu IH Q12HRT KETAN Budesonide 1 mg 04/12/19 22:00 Pulmicort IH Q12HRT KETAN Hydromorphone HCl 1 mg 04/12/19 20:18 04/13/19 06:52 Dilaudid IV 1 mg Q3H PRN Administration Pain , Severe (7-10) Lactated Ringer's 1,000 mls @ 125 mls/hr 04/12/19 11:00 Lactated Ringers IV DIRECT KETAN Ibuprofen 800 mg 04/12/19 21:00 04/13/19 09:40 Ibuprofen PO 04/13/19 15:01 800 mg Q6H KETAN Administration Lorazepam 1 mg 04/12/19 20:18 04/13/19 01:52 Ativan IV 1 mg Q4H PRN Administration Anxiety Metoclopramide HCl 10 mg 04/12/19 12:30 04/13/19 08:06 Reglan IV 10 mg Q6H PRN Administration Nausea And Vomiting Metoclopramide HCl 10 mg 04/12/19 12:30 Reglan PO Q6H PRN Nausea And Vomiting Midazolam HCl 1 mg 04/12/19 12:10 04/12/19 13:10 Versed IV 1 mg ONCE PRN Administration Agitation Ondansetron HCl 4 mg 04/12/19 12:30 04/13/19 01:32 Zofran IV 4 mg Q8H PRN Administration N/V unrelieved by Reglan Ondansetron HCl 4 mg 04/12/19 12:30 Zofran Odt PO Q8H PRN Nausea And Vomiting Oxycodone/Acetaminophen 2 tab 04/12/19 12:30 04/13/19 01:52 Percocet 5/325 PO 2 tab Q6H PRN Administration Pain, Moderate (4-6) Pantoprazole Sodium 40 mg 04/12/19 22:00 04/13/19 11:20 Protonix PO 40 mg QDAY KETAN Administration
[2019-04-13] MEDS: ENOXAPARIN 40 MG/0.4 ML INJ SUB-Q SCH (15:32)
[2019-04-13] MEDS ORDERED: SODIUM CHLORIDE 0.9% 250ML 250 ML IV ONE (16:00)
--- NOTE | 2019-04-13 18:41 | Event Note ---
Date: 04/13/19 pt able to void spontaneously. Will con't to keep in house until the am as pt still having some pain mangement issues. Spoke wth Dr. Matta and she agrees with continued admission.
[2019-04-14 05:08] LABS: Hematocrit 29.8 % (30.3-42.9); Hemoglobin 9.9 gm/dl (10.1-14.3); Mean Corpuscular HGB Conc 33 % (30-34); Mean Corpuscular Volume 82 fl (79-97); Platelet Count 259 K/mm3 (140-440); Red Blood Count 3.65 M/mm3 (3.65-5.03); Red Cell Distribution Width 15.7 % (13.2-15.2)
[2019-04-14 05:31] LABS: BUN/Creatinine Ratio 10; Blood Urea Nitrogen 8 mg/dL (7-17); Calcium 8.4 mg/dL (8.4-10.2); Hemolysis Index 9
[2019-04-14] MEDS ORDERED: MAGNESIUM SULFATE 2 GM/50 ML BAG IV ONE (07:39)
[2019-04-14] MEDS: ARFORMOTEROL 15 MCG/2 ML NEBU IH SCH (08:12)
[2019-04-14] MEDS: BUDESONIDE 0.5 MG/2 ML NEBU IH SCH (08:13)
[2019-04-14] MEDS: oxyCODONE /ACETAMINOPHEN 5-325MG TAB PO PRN (08:44)
--- NOTE | 2019-04-14 11:03 | Discharge Summary ---
Providers - Providers Date of Admission: 04/12/19 10:44 Attending physician: KAVITA ERWIN 04/12/19 12:11 Consult to Physician [CONS] Urgent Comment: Consulting Provider: HERO GONZALEZ Physician Instructions: Reason For Exam: asthma, post op 04/12/19 18:29 Consult to Case Management [CONS] Routine Services Needed at Discharge: [employer] Programmer Primary care physician: PHARMACEUTICAL SALES REPRESENTATIVE Hospitalization Disposition: DC-30 STILL A PATIENT - Discharge Diagnoses (1) VENKATA (generalized anxiety disorder) Status: Acute (2) History of robot-assisted laparoscopic hysterectomy Status: Acute Plan - Discharge Medications Prescriptions: Ibuprofen [Motrin 800 MG tab] 800 mg PO TID PRN #30 tablet PRN Reason: Pain oxyCODONE /ACETAMINOPHEN [Percocet 5/325 mg] 1 tab PO Q6H PRN #14 tablet PRN Reason: Pain - Provider Discharge Summary Additional instructions: [] Smoking cessation referral if applicable(refer to patient education folder for contact #) [] Refer to [facility] Booklet Call your doctor immediately for: * Fever > 100.5 * Heavy vaginal bleeding ( >1 pad per hour) * Severe persistent headache * Shortness of breath * Reddened, hot, painful area to leg or breast * Drainage or odor from incision. * Keep incision clean and dry at all times and follow doctor's instructions regarding bathing/showering - Follow up plan Follow up: KAVITA ERWIN MD [Staff Physician] - 7 Days (As scheduled) PRIMARY CAREMD [Primary Care Provider] - 7 Days
[2019-04-14] MEDS: PANTOPRAZOLE 40 MG TAB PO SCH (11:38)
[2019-04-14] MEDS: ENOXAPARIN 40 MG/0.4 ML INJ SUB-Q SCH (11:38)
[2019-04-14 12:34] VITALS: BP 97/46
[2019-04-14] MEDS: ONDANSETRON 4 MG/2 ML INJ IV PRN (13:17)
== END 2019-04-14 14:06 | disposition home or self-care (01) | DRG 742 ==
LOC: OR 05:50 → OBSVTOIN 10:44 → OB 10:44 → IMCU 12:28
PROVIDERS: ADMIT Obstetrics & Gynecology; ATTEND Obstetrics & Gynecology
PROC: 0UT9FZZ Resection of Uterus, Via Natural or Artificial Opening With Percutaneous Endoscopic Assistance (ICD-10-PCS; principal; 2019-04-12)
PROC: 0UT7FZZ Resection of Bilateral Fallopian Tubes, Via Natural or Artificial Opening With Percutaneous Endoscopic Assistance (ICD-10-PCS; 2019-04-12)
PROC: 8E0W4CZ Robotic Assisted Procedure of Trunk Region, Percutaneous Endoscopic Approach (ICD-10-PCS; 2019-04-12)
PROC: 5A09357 Assistance with Respiratory Ventilation, Less than 24 Consecutive Hours, Continuous Positive Airway Pressure (ICD-10-PCS; 2019-04-12)
PROC: 5A09357 Assistance with Respiratory Ventilation, Less than 24 Consecutive Hours, Continuous Positive Airway Pressure (ICD-10-PCS; 2019-04-13)
DX: D25.9 Leiomyoma of uterus, unspecified (principal); J96.00 Acute respiratory failure, unspecified whether with hypoxia or hypercapnia; D62 Acute posthemorrhagic anemia; N92.0 Excessive and frequent menstruation with regular cycle; N73.6 Female pelvic peritoneal adhesions (postinfective); D70.9 Neutropenia, unspecified; J45.909 Unspecified asthma, uncomplicated; R19.00 Intra-abdominal and pelvic swelling, mass and lump, unspecified site; G47.33 Obstructive sleep apnea (adult) (pediatric); F41.1 Generalized anxiety disorder; Z87.442 Personal history of urinary calculi; Z98.51 Tubal ligation status; Z88.5 Allergy status to narcotic agent; Z88.0 Allergy status to penicillin; Z79.899 Other long term (current) drug therapy; Z87.440 Personal history of urinary (tract) infections; Z80.8 Family history of malignant neoplasm of other organs or systems; Z80.1 Family history of malignant neoplasm of trachea, bronchus and lung; Z80.3 Family history of malignant neoplasm of breast
CPT/HCPCS: 36415; 64450; 71045; 80048; 81025; 83735; 85025; 85027; 86850; 86900; 86901; 88302; 88307; 94640; 94660; 94760; G0378; A4217; J1100; J1170; J1200; J1580; J1650; J2060; J2250; J2370; J2405; J2704; J2710; J2765; J3010; J3475; J3490; J7050; J7120

== ENCOUNTER 2019-07-18 21:20 | Emergency (ER) | payer BC, OTHER ==
--- NOTE | 2019-07-18 21:35 | Event Note ---
ED Screening Note Date of service: 07/18/19 Time: 21:34 ED Screening Note: 38 y o asthmatic [id number] with prod cough and sob sat 100 room air This initial assessment/diagnostic orders/clinical plan/treatment(s) is/are subject to change based on patients health status, clinical progression and re- assessment by fellow clinical providers in the ED. Further treatment and workup at subsequent clinical providers discretion. Patient/guardian urged not to elope from the ED as their condition may be serious if not clinically assessed and managed. Initial orders include: cxr acc eval
[2019-07-18 21:40] VITALS: BP 113/36
[2019-07-18] MEDS ORDERED: IPRATROPIUM/ALBUTEROL SULFATE 3 ML AMPUL.NEB IH ONE (22:19)
[2019-07-18] MEDS ORDERED: predniSONE 20 MG TAB PO ONE (22:19)
--- NOTE | 2019-07-18 22:20 | XRay Report ---
CHEST 2 VIEWS INDICATION / CLINICAL INFORMATION: pain/cough. COMPARISON: 04/13/19 FINDINGS: SUPPORT DEVICES: None. HEART / MEDIASTINUM: No significant abnormality. LUNGS / PLEURA: No significant pulmonary or pleural abnormality. No pneumothorax. ADDITIONAL FINDINGS: No significant additional finding. IMPRESSION: 1. No acute findings. Signer Name: Mary Ann Krueger MD Signed: 07/18/2019 10:16 PM Workstation Name: [id number]
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
== END 2019-07-18 23:10 | disposition home or self-care (01) ==
LOC: ED 21:20
DX: J45.901 Unspecified asthma with (acute) exacerbation (principal)
CPT/HCPCS: 71046; 94640; 99283; J7512; 94644